=== PATIENT | male | born 1990 | race Caucasian/White ===

== ENCOUNTER 2017-09-08 02:50 | Emergency (ER) | payer OTHER ==
[~2017-09-08] VITALS: Ht 182.9 cm; Wt 81.7 kg
--- NOTE | ~2017-09-08 | EKG ---
[address] [address] ELECTROCARDIOGRAM REPORT Name: TREVOR FERRERA Room #: [facility] Liban#: [id number] Admission: 09/08/17 Attend Phys: Discharge: 09/08/17 Date of : 89 Report #: [id number] THIS REPORT FOR: //name// [facility] ED Test Date: 2017-09-08 Test Time: 02:53:29 Pat Name: TREVOR FERRERA Department: Room: Gender: [employer]: HUONG : 1990 Requested By: Dominguez Whitehead Order Number: [id number] MD: Rachid Chambers Measurements Intervals [place] Rate: 92 P: 64 [place]: 145 QRS: 54 QRSD: 91 T: 45 QT: 374 QTc: 463 Interpretive Statements Sinus rhythm Probable left atrial enlargement ST elev, probable normal early repol pattern No previous ECG available for comparison Electronically Signed On 09-08-2017 21:27:05 LIGHT BULB TESTER by Rachid Chambers [email or web address] <ELECTRONICALLY SIGNED> By: Rachid Chambers MD 09/08/177 [id number] [id number] Rachid Chambers MD /TU
[2017-09-08 03:55] VITALS: BP 122/80
== END 2017-09-08 03:55 | disposition home or self-care (01) ==
LOC: ER 02:50
DX: F22 Delusional disorders (principal); F15.10 Other stimulant abuse, uncomplicated; F10.99 Alcohol use, unspecified with unspecified alcohol-induced disorder